=== PATIENT | male | born 1975 | race Caucasian/White ===

== ENCOUNTER 2017-02-27 10:56 | Inpatient (IN) | payer SELFPAY ==
[~2017-02-27] VITALS: Ht 188 cm; Wt 99.9 kg
[2017-02-27] MEDS ORDERED: DILTIAZEM HCL 25 MG/5 ML VIAL IV ONE (11:30)
[2017-02-27] MEDS ORDERED: ONDANSETRON HCL 4 MG/2 ML VIAL IV ONE (11:30)
[2017-02-27] MEDS ORDERED: ACETAMINOPHEN 325 MG TAB PO ONE (11:30)
[2017-02-27 11:55] LABS: Basophils # (auto) 0 uL; Basophils % (auto) 0.3 % (0.0-2.0); Eosinophils # (auto) 0 uL; Eosinophils % (auto) 0.1 % (0.0-7.0); Hematocrit 46.9 % (41.0-53.0); Hemoglobin 16.3 g/dL (13.5-17.5); Lymphocytes # (auto) 0.8 uL; Lymphocytes % (auto) 7.3 % (10.0-50.0); Mean Corpuscular Hemoglobin 29.9 pg (28.0-32.0); Mean Corpuscular Hgb Conc. 34.7 g/dL (32.0-36.0); Mean Platelet Volume 6.8 fL (6.9-10.8); Monocytes # (auto) 0.3 uL; Monocytes % (auto) 2.6 % (0.0-12.0); Neutrophils # (auto) 9.7 uL; Neutrophils % (auto) 89.7 % (37.0-80.0); Platelet Count (auto) 392 10^3/uL (140-450); Red Cell Distribution Width 14.1 % (11.8-14.3); White Blood Cell 10.8 10^3/uL (4.4-10.8)
[2017-02-27] MEDS ORDERED: NICARDIPINE 25MG/250ML BAG KIT 250 ML IV SCH (11:55)
[2017-02-27 12:08] LABS: INR 0.92 (0.9-1.15); Partial Thromboplastin Time 28.9 sec (22.64-33.71)
[2017-02-27 12:14] LABS: Albumin 4.7 g/dL (3.4-5.0); Alkaline Phosphatase 84 U/L (45-117); Anion Gap 8 (5-15); Aspartate Aminotransferase 21 U/L (15-37); BUN/Creatinine Ratio 12.4; Bilirubin, Total 1.7 mg/dL (0.2-1.0); Blood Urea Nitrogen 14 mg/dL (7-18); Calcium 8.9 mg/dL (8.5-10.1); Carbon Dioxide 26 mmol/L (21-32); Chloride 102 mmol/L (98-107); GFR African American 91 mL/min; GFR Non-African American 75 mL/min; Glucose 119 mg/dL (74-106); Magnesium 2.3 mg/dL (1.6-2.6); Potassium 3.2 mmol/L (3.5-5.1); Sodium 136 mmol/L (136-145)
[2017-02-27 12:39] LABS: B-Type Natriuretic Peptide 20.6 pg/mL (0-100)
[2017-02-27] MEDS ORDERED: POTASSIUM CHL 10% (20 MEQ/15ML) 15ml ORAL SOLN PO ONE (13:15)
[2017-02-27] MEDS ORDERED: LORazepam 2MG/ML-1ML VIAL IV PRN (13:45)
[2017-02-27] MEDS ORDERED: LORazepam 0.5 MG TAB PO PRN (16:00)
[2017-02-27] MEDS ORDERED: MORPHINE SULFATE 10 MG/ML INJ 1ML SDV IV PRN (16:00)
[2017-02-27] MEDS ORDERED: ACETAMINOPHEN 500 MG TAB PO PRN (16:00)
[2017-02-27] MEDS ORDERED: TEMAZEPAM 15 MG CAP PO PRN (16:00)
[2017-02-27] MEDS ORDERED: LACTULOSE 20Gm/30ML SOLN PO PRN (16:00)
[2017-02-27] MEDS ORDERED: PROMETHAZINE HCL 25 MG/ML 1ML IV PRN (16:00)
[2017-02-27] MEDS ORDERED: HYDROcodone-ACET 5/325MG TAB PO PRN (16:00)
[2017-02-27] MEDS ORDERED: NITROGLYCERIN 0.4 MG SL TAB SL PRN (16:00)
[2017-02-27] MEDS ORDERED: HYDROmorphone HCL 2 MG/ML VL IV PRN (16:00)
[2017-02-27] MEDS ORDERED: POTASSIUM CHL 20 Meq TABLET PO ONE (16:00)
[2017-02-27 16:45] LABS: Temperature: 21.4 C (20.0-25.0)
[2017-02-27] MEDS ORDERED: NICARDIPINE 25MG/250ML BAG KIT 250 ML IV ONE (21:07)
[2017-02-27] MEDS: NICARDIPINE 25MG/250ML BAG KIT 250 ML IV SCH (21:20)
[2017-02-27] MEDS: ATORVASTATIN 20 MG TAB PO SCH (22:30)
[2017-02-28] MEDS: NICARDIPINE 25MG/250ML BAG KIT 250 ML IV SCH ×4 (00:15→08:52)
[2017-02-28] MEDS ORDERED: NICARDIPINE 25MG/250ML BAG KIT 250 ML IV ONE ×3 (00:15→04:21)
[2017-02-28 05:01] LABS: Cholesterol 217 mg/dL (< 200); HDL Cholesterol 32 mg/dL (40-59); LDL Cholesterol 141 mg/dL (< 100); Triglycerides 393 mg/dL (< 150)
[2017-02-28] MEDS: ASPirin 81 mg TAB PO SCH (10:39)
[2017-02-28] MEDS ORDERED: LABETALOL HCL 5 MG/ML 4ML SYRINGE IV PRN (13:30)
[2017-02-28] MEDS ORDERED: METOPROLOL TARTRATE 25 MG TAB PO ONE (13:30)
[2017-02-28] MEDS ORDERED: LISINOPRIL 10 MG TAB PO ONE (13:30)
[2017-02-28 13:46] LABS: BUN/Creatinine Ratio 13.7; Calcium 8.1 mg/dL (8.5-10.1); Potassium 3.3 mmol/L (3.5-5.1)
[2017-02-28] MEDS ORDERED: POTASSIUM CHL 20 Meq TABLET PO ONE (16:15)
[2017-02-28] MEDS: ATORVASTATIN 20 MG TAB PO SCH (21:41)
[2017-02-28] MEDS: METOPROLOL TARTRATE 25 MG TAB PO SCH (21:41)
[2017-02-28 22:35] LABS: Urine Bilirubin Negative (Negative); Urine Blood Negative /uL (Negative); Urine Color Yellow (Yellow); Urine Glucose Normal (Normal); Urine Ketone Negative (Negative); Urine Mucus FEW (None Seen); Urine Nitrite Negative (Negative); Urine RBC 1 /hpf (0 - 3)
[2017-03-01 02:00] VITALS: BP 143/84
[2017-03-01 02:09] VITALS: BP 143/84
[2017-03-01 05:30] VITALS: BP 151/84
[2017-03-01 08:27] LABS: Basophils # (auto) 0 uL; Basophils % (auto) 0.3 % (0.0-2.0); Eosinophils # (auto) 0 uL; Eosinophils % (auto) 0.5 % (0.0-7.0); Hematocrit 41.4 % (41.0-53.0); Hemoglobin 14.2 g/dL (13.5-17.5); Lymphocytes # (auto) 1.5 uL; Lymphocytes % (auto) 16.3 % (10.0-50.0); Mean Corpuscular Hemoglobin 30.2 pg (28.0-32.0); Mean Corpuscular Hgb Conc. 34.4 g/dL (32.0-36.0); Mean Corpuscular Volume 87.9 fL (80.0-100.0); Mean Platelet Volume 6.8 fL (6.9-10.8); Monocytes # (auto) 0.7 uL; Neutrophils # (auto) 7.1 uL; Neutrophils % (auto) 75.9 % (37.0-80.0); Nucleated Red Blood Cells % 0.1 %; Platelet Count (auto) 352 10^3/uL (140-450); Red Cell Distribution Width 13.7 % (11.8-14.3); White Blood Cell 9.4 10^3/uL (4.4-10.8)
[2017-03-01 08:44] LABS: BUN/Creatinine Ratio 19.8; Calcium 8.4 mg/dL (8.5-10.1); Potassium 3.4 mmol/L (3.5-5.1)
[2017-03-01 09:00] VITALS: BP 148/99
[2017-03-01] MEDS ORDERED: LISINOPRIL 10 MG TAB PO SCH ×2 (10:00)
[2017-03-01] MEDS: METOPROLOL TARTRATE 25 MG TAB PO SCH (10:00)
[2017-03-01] MEDS: ASPirin 81 mg TAB PO SCH (10:00)
[2017-03-01] MEDS ORDERED: LISI10TA6 PO (11:21)
[2017-03-01] MEDS ORDERED: MET25T PO (11:21)
[2017-03-01] MEDS ORDERED: ASPI81CH43 PO (11:21)
[2017-03-01] MEDS ORDERED: ATOR20TA50 PO (11:21)
[2017-03-01 13:00] VITALS: BP 152/99
== END 2017-03-01 15:10 | disposition home or self-care (01) | DRG 79 ==
LOC: ER 10:56 → TELE 10:57 → TELE-WESTW 03-01 01:35
PROVIDERS: ADMIT Internal Medicine; ATTEND Internal Medicine
DX: I67.4 Hypertensive encephalopathy (principal); E78.5 Hyperlipidemia, unspecified; I10 Essential (primary) hypertension; E87.6 Hypokalemia; G47.30 Sleep apnea, unspecified; L40.9 Psoriasis, unspecified; Z82.3 Family history of stroke; Z82.49 Family history of ischemic heart disease and other diseases of the circulatory system; Z83.3 Family history of diabetes mellitus; Z87.891 Personal history of nicotine dependence; Z91.14 Patient's other noncompliance with medication regimen
CPT/HCPCS: 36415; 70450; 70551; 71020; 76775; 80048; 80053; 80061; 80307; 80320; 81001; 82088; 82550; 82607; 82746; 83735; 83880; 84244; 84443; 84484; 85025; 85379; 85610; 85652; 85730; 93005; 93306; 93886; 96365; 96366; 96375; 99291; J2405

== ENCOUNTER 2020-12-01 07:37 | Emergency (ER) | payer OTHER ==
[~2020-12-01] VITALS: Ht 182.9 cm; Wt 90.7 kg
[~2020-12-01 07:37] MED LIST: ASPI81CH43 PO; ATOR20TA50 PO; LISI-716 PO; MET25T PO
[2020-12-01] MEDS ORDERED: LABETALOL HCL 5 MG/ML 4ML SYRINGE IV ONE (10:30)
[2020-12-01] MEDS ORDERED: ONDANSETRON HCL 4 MG/2 ML VIAL IV ONE (10:30)
[2020-12-01] MEDS ORDERED: HYDROmorphone HCL 2 MG/ML VL IV ONE (10:30)
[2020-12-01] MEDS ORDERED: cloNIDine HCL 0.1 MG TAB PO ONE (12:30)
[2020-12-01 12:43] VITALS: BP 150/106
== END 2020-12-01 12:59 | disposition short-term general hospital (02) ==
LOC: ER 07:37 → EDBD 07:37 → ER 12:59
DX: S32.018A Other fracture of first lumbar vertebra, initial encounter for closed fracture (principal); M79.18 Myalgia, other site; M54.2 Cervicalgia; R51.9 Headache, unspecified; I10 Essential (primary) hypertension; Z86.73 Personal history of transient ischemic attack (TIA), and cerebral infarction without residual deficits; Z79.82 Long term (current) use of aspirin; Z79.899 Other long term (current) drug therapy; V49.49XA Driver injured in collision with other motor vehicles in traffic accident, initial encounter; Y93.89 Activity, other specified; Y92.488 Other paved roadways as the place of occurrence of the external cause; Y99.8 Other external cause status
CPT/HCPCS: 70450; 71045; 72125; 72131; 96374; 96375; 99285; J1170; J2405; J3490

== ENCOUNTER 2022-08-26 13:26 | Emergency (ER) | payer OTHER ==
[~2022-08-26] VITALS: Ht 185.4 cm; Wt 129.0 kg
[2022-08-26 13:34] VITALS: BP 154/96
[2022-08-26 14:31] LABS: Basophils # (auto) 0 10 ^3/uL (0-0.2); Basophils % (auto) 0.5 % (0.0-2.0); Eosinophils # (auto) 0.1 10 ^3/uL (0-0.8); Eosinophils % (auto) 1.1 % (0.0-7.0); Hematocrit 44.9 % (41.0-53.0); Hemoglobin 15.5 g/dL (13.5-17.5); Lymphocytes % (auto) 10.3 % (10.0-50.0); Mean Corpuscular Hemoglobin 30.6 pg (28.0-32.0); Mean Corpuscular Hgb Conc. 34.6 g/dL (32.0-36.0); Mean Corpuscular Volume 88.4 fL (80.0-100.0); Monocytes # (auto) 0.4 10 ^3/uL (0-1.3); Monocytes % (auto) 4.5 % (0.0-12.0); Neutrophils % (auto) 83.6 % (37.0-80.0); Nucleated Red Blood Cells % 0.4 %; Red Blood Cells 5.07 10^6/uL (4.5-5.90); Red Cell Distribution Width 13.7 % (11.8-14.3); White Blood Cell 9.5 10^3/uL (4.4-10.8)
[2022-08-26 14:46] LABS: Albumin 3.8 g/dL (3.4-5.0); BUN/Creatinine Ratio 9.4 (10.0-20.0)
[2022-08-26 14:50] LABS: Total Protein 7.3 g/dL (6.4-8.2)
[2022-08-26] MEDS ORDERED: HYDROcodone-ACET 5/325MG TAB PO ONE (17:30)
[2022-08-26] MEDS ORDERED: IOHEXOL 350 MG/ML 100ML IJ ONE (20:03)
== END 2022-08-26 23:54 | disposition left against medical advice (07) ==
LOC: ER 13:26 → EDBD 13:26 → ER 22:53
DX: K80.20 Calculus of gallbladder without cholecystitis without obstruction (principal); R10.31 Right lower quadrant pain; I10 Essential (primary) hypertension; Z79.899 Other long term (current) drug therapy; Z86.73 Personal history of transient ischemic attack (TIA), and cerebral infarction without residual deficits; Z87.891 Personal history of nicotine dependence
CPT/HCPCS: 36415; 74176; 80053; 84484; 85025; 99284; Q9967

== ENCOUNTER 2022-08-26 23:24 | Emergency (ER) | payer OTHER ==
[2022-08-26] MEDS ORDERED: SODIUM BICARBONATE 8.4% INJ 50ML SYRINGE ONE (23:35)
[2022-08-27] MEDS ORDERED: SODIUM BICARBONATE 8.4 % INJ 50ML VIAL IV ONE (00:45)
== END 2022-08-26 23:38 ==
LOC: EDBD 23:24 → ER 23:24
DX: I46.9 Cardiac arrest, cause unspecified (principal); H57.04 Mydriasis; I10 Essential (primary) hypertension; Z86.73 Personal history of transient ischemic attack (TIA), and cerebral infarction without residual deficits
CPT/HCPCS: 92950; 96374